=== PATIENT | female | born 1970 | race Hispanic/Latino ===

== ENCOUNTER 2018-01-04 14:16 | Outpatient (CLI) | payer OTHER | END 2018-01-04 14:17 | disposition home or self-care (01) | LOC: LABHHL 14:16 | PROVIDERS: ATTEND Surgery | DX: N63.20 Unspecified lump in the left breast, unspecified quadrant (principal) | CPT/HCPCS: 88305; 88342; 88361 ==

== ENCOUNTER 2018-01-23 12:04 | Day surgery (SDC) | payer BC ==
[2018-01-23] MEDS ORDERED: ANCEF/STERILE WATER 2 GM/20 ML IV NR (13:42)
[2018-01-23] MEDS ORDERED: LACTATED RINGERS 1,000 ML IV SCH (14:00)
[2018-01-23] MEDS ORDERED: ROBINUL IV NR (14:00)
[2018-01-23] MEDS ORDERED: PEPCID IV SCH (14:00)
[2018-01-23] MEDS ORDERED: VERSED IV ONE (14:01)
--- NOTE | 2018-01-23 16:57 | Anesthesia Consultation ---
Anesthesia Consult and Med Hx Date of service: 01/23/18 - Airway Anesthetic Teeth Evaluation: Good ROM Head & Neck: Adequate Mental/Hyoid Distance: Adequate Mallampati Class: Class I Intubation Access Assessment: Good - Pulmonary Exam CTA: Yes - Cardiac Exam Cardiac Exam: No Murmur - Pre-Operative Health Status ASA Pre-Surgery Classification: ASA2 Proposed Anesthetic Plan: General - Pulmonary Hx Asthma: Yes (EXERCISE INDUCED) - Central Nervous System Hx Psychiatric Problems: No - Other Systems Hx Alcohol Use: Yes (OCCA) Hx Substance Use: No Hx Cancer: Yes
--- NOTE | 2018-01-23 16:57 | Anesthesia Day of Surgery ---
Anesthesia Day of Surgery - Day of Surgery Patient Examined: Yes Patient H&P Reviewed: Yes Patient is NPO: Yes
[2018-01-23] MEDS ORDERED: QUELICIN ONE (17:53)
[2018-01-23] MEDS ORDERED: DIPRIVAN 10 MG/ML IV ONE (17:53)
[2018-01-23] MEDS ORDERED: XYLOCAINE MPF 2% ONE (17:53)
[2018-01-23] MEDS ORDERED: HEPARIN 10,000 UNITS/10 ML ONE (17:56)
[2018-01-23] MEDS ORDERED: MARCAINE 0.5% 30 ML INFILTRATI ONE (17:56)
[2018-01-23] MEDS ORDERED: XYLOCAINE 1% 20 mL ONE (17:56)
[2018-01-23] MEDS ORDERED: NACL 0.9% 100 ML ONE (17:57)
[2018-01-23] MEDS ORDERED: SUBLIMAZE ONE (18:05)
[2018-01-23] MEDS ORDERED: MARCAINE 0.5% INFILTRATI ONE (18:38)
[2018-01-23] MEDS ORDERED: XYLOCAINE 1% 20 mL INFILTRATI ONE (18:38)
[2018-01-23] MEDS ORDERED: HEPARIN IV ONE (18:38)
[2018-01-23] MEDS ORDERED: ZOFRAN ONE (19:21)
--- NOTE | 2018-01-23 19:22 | Short Stay Summary ---
Short Stay Documentation Date of service: 01/23/18 - History H&P: obtained from office - Allergies and Medications Current Medications: Allergies Sulfa (Sulfonamide Antibiotics) Allergy (Verified 01/22/18 14:26) Hives Home Medications Medication Instructions Recorded Confirmed Last Taken Type Cetirizine HCl [ZyrTEC] 10 mg PO DAILY 01/22/18 01/22/18 01/22/18 History Doxylamine Succinate [Unisom] 25 mg PO QHS 01/22/18 01/22/18 01/22/18 History Fluticasone [Flonase] 1 spray NS QDAY 01/22/18 01/22/18 01/22/18 History Melatonin 5 mg PO QHS 01/22/18 01/22/18 01/22/18 History Montelukast [Singulair] 10 mg PO QPM 01/22/18 01/22/18 01/22/18 History Multivit with Calcium,Iron,Min 1 tab PO DAILY 01/22/18 01/22/18 01/22/18 History [Multiple Vitamins For Women] Pseudoephedrine ER [Sudafed 12 Hr] 120 mg PO QDAY 01/22/18 01/22/18 01/22/18 History oxyCODONE /ACETAMINOPHEN [Percocet 5 - 325 mg PO Q4-6H 01/23/18 01/23/18 23:30 History 5/325 mg] Active Medications Famotidine (Pepcid) 20 mg IV PREOP CELENA Stop: 01/23/18 23:59 Last Admin: 01/23/18 14:30 Dose: 20 mg Glycopyrrolate (Robinul) 0.1 mg IV PREOP NR Stop: 01/23/18 23:59 Last Admin: 01/23/18 14:25 Dose: 0.1 mg Lactated Ringer's (Lactated Ringers) 1,000 mls @ 75 mls/hr IV DIRECT CELENA Last Admin: 01/23/18 14:21 Dose: 75 mls/hr - Physical exam General appearance: no acute distress Integumentary: no rash, no growths, no abnormal pigmentation HEENT: EOMI Lungs: Clear to auscultation Heart: Regular rate Neurological: Normal speech - Brief post op/procedure progress note Date of procedure: 01/23/18 (Dictation#[id number]) Pre-op diagnosis: left breast cancer Post-op diagnosis: same Procedure: Ultrasound guided port placement Anesthesia: GETA Findings: normal anatomy Surgeon: VIOLA FARIAS Estimated blood loss: minimal (20cc) Pathology: none Condition: stable - Disposition Condition at discharge: Stable Disposition: DC-01 TO HOME OR SELFCARE - Discharge Diagnoses (1) Breast cancer Status: Acute Qualifiers: Laterality: left Short Stay Discharge Plan Diet: regular Wound: open to air, keep clean and dry, other (may shower after 48hours. Pat dry wounds) Special Instructions: no heavy lifting (or strenuous activity for 6 weeks) Follow up with: BREANA ESPARZA [Other] - 7 Days
--- NOTE | 2018-01-23 20:26 | Operative Report ---
PREOPERATIVE DIAGNOSIS: Left breast cancer. POSTOPERATIVE DIAGNOSIS: Left breast cancer. PROCEDURES: 1. Insertion of tunneled centrally inserted central venous access device with subcutaneous port. 2. Ultrasound guidance for vascular access. ATTENDING PHYSICIAN: Juan Francisco Jones MD ANESTHESIA: General. ESTIMATED BLOOD LOSS: Minimal. FLUIDS: 1700 mL. FINDINGS: Normal vascular anatomy. IMPLANT: Infusaport. COMPLICATIONS: None. DISPOSITION: Stable, transferred to Recovery Room. INDICATIONS: This is a 47-year-old female with a recent diagnosis of breast cancer. The patient is assessed to be in need for chemotherapy. Request made for Port-A-Cath placement. Procedure, risks, benefits, and alternatives were discussed with the patient and . Risks included, but were not limited to infection, bleeding, pain, injury to surrounding structures, possible hemo or pneumothorax, possible port malfunction, and need for replacement, etc. All questions were answered. Consent was obtained. OPERATIVE NOTE: The patient was brought to the operating room and placed on the table in supine position. After adequate general anesthesia was established, the patient was prepped and draped in the usual sterile fashion. Antibiotics have been administered. SCDs were in place. Prior to the prepping, I did an ultrasound examination, the subclavian vein and artery were easily identified. They were patent and easily compressible in normal location. Therefore, this was our first target when we were ready for access. The patient was placed in Trendelenburg position, head was slightly rotated to the left, shoulder roll was underneath the spine. A small incision was made in the lateral aspect of the upper chest. Under ultrasound guidance, I inserted the echogenic introducer needle. Initially, we were injecting local into the surrounding tissue. I could see that under ultrasound guidance. Then, ultrasound needle was used to access the vessel. I followed the path of the ultrasound needle down to the vessel. As I tried to enter the vessel, the vein kept pushing away, it kept indenting under the needle. I was concerned after a couple of attempts that it may suddenly release and I may end up going through the vein into the underlying pleural cavity causing a pneumothorax. Therefore, I elected to abort this access and go to the neck. Evaluation of the neck revealed a very large and patent internal jugular vein on the right. It was easily compressible. The entire course was without clot and patent. I made another small incision on the lateral aspect of the neck under ultrasound guidance. I watched as the echogenic needle was inserted. We saw her directly that the needle was going into the vein. We had good aspiration of venous blood. Guidewire passed easily. I checked with ultrasound guidance, the wire was clearly in the internal jugular vein. We then brought fluoroscopy and the wire went all the way into the superior vena cava through the heart into the inferior vena cava. There was no ectopy at this point. I then injected the planned pocket site along with the planned tract site for the catheter. The pocket incision was made sharply. Blunt and electrocautery dissection was used to create the pocket. I then packed that pocket with gauze and then tunneled the catheter up to the neck. As noted, the tract had been anesthetized with local anesthetic, I had used 1% lidocaine and 0.5% Marcaine combination. We were able to bring the catheter out through the neck incision. I then secured the catheter and passed the tunneler and dilator over the wire, it passed easily. The guidewire and the dilator were removed. Pressure was held over the opening in the sheath. Catheter was easily inserted. We checked with fluoroscopy. We pulled the catheter back to a good location and then left a little extra slack so that I would have room to adjust the catheter at the pocket site. The port was attached and secured with a locking device and placed in the pocket easily. We then used the flush to aspirate and flush the port and lined, it did so very easily. We then made final adjustments for the catheter, sheath was removed. Catheter appeared to be in good position. At this point, I then injected the locking solution. We aspirated easily and then injected locking solution. This was a total of 3000 units of heparin, we had no active bleeding from either incision sites. I used 3-0 Vicryl to close the dermal layer with interrupted stitches. Skin was closed with running 4-0 Monocryl subcuticular stitches. Skin was cleaned and dried. Dermabond was applied to all 3 sites. The patient tolerated procedure well. There were no complications. The patient was stable, transferred to Recovery. Chest x-ray was done in the room. I saw no evidence of pneumothorax. The catheter appeared to be in good position. I went out afterwards to speak with the , he appreciated our efforts. JOB# [id number] DEANNA/JOE
--- NOTE | 2018-01-23 20:33 | Fluoroscopy Report ---
FINAL REPORT PROCEDURE: Chest one view TECHNIQUE: Chest radiograph anteroposterior view. CPT 67626 HISTORY: BREAST CANCER/INSERTION OF INFUSAPORT COMPARISON: No prior studies are available for comparison. FINDINGS: Heart: Normal. Mediastinum/Vessels: Normal. Lungs/Pleural space: Normal. Bony thorax: No acute osseous abnormality. Life support devices: A right-sided chest port is noted with its catheter terminating at the level of proximal right atrium. IMPRESSION: Lungs and pleural spaces are clear Right chest port catheter is terminating at the level of proximal right atrium..
--- NOTE | 2018-01-23 20:55 | Post Anesthesia Evaluation ---
- Post Anesthesia Evaluation Patient Participated: Yes Airway Patent: Yes Stable Respiratory Function: Yes Nausea/Vomiting: No Temp > 96.8F: Yes Pain Manageable: Yes Adequeate Hydration: Yes Anesthesia Complications: No Block Receding Appropriately: Not Applicable Patient on Ventilator: No
[2018-01-23 21:11] VITALS: BP 124/73
== END 2018-01-23 20:50 | disposition home or self-care (01) ==
LOC: OR 12:04
PROVIDERS: ATTEND Surgery
DX: C50.212 Malignant neoplasm of upper-inner quadrant of left female breast (principal); J45.909 Unspecified asthma, uncomplicated; M19.90 Unspecified osteoarthritis, unspecified site; E66.9 Obesity, unspecified; Z88.2 Allergy status to sulfonamides; Z98.890 Other specified postprocedural states
CPT/HCPCS: 36561; 76937; 77001; 81025; C1788; J0690; J1644; J2250; J2405; J2704; J3010; J7120; J0330

== ENCOUNTER 2021-01-24 10:25 | Outpatient (CLI) | payer BC ==
--- NOTE | 2021-01-24 15:20 | Mammography Report ---
DIGITAL SCREENING MAMMOGRAM WITH TOMOSYNTHESIS WITH CAD, 01/24/2021 CLINICAL INFORMATION / INDICATION: Screening TECHNIQUE: Digital bilateral 2D and 3D mammography with tomosynthesis was obtained in the craniocaud al and mediolateral oblique projections. Computer-Aided Detection (CAD) analysis was used for interp retation of this study. COMPARISON: 01/15/2020 and priors FINDINGS: Breast Density: The breasts are heterogeneously dense, which may obscure small masses. No dominant mass, suspicious calcifications, or architectural distortion in either breast. Left surgical and radiation therapy changes are again seen. Mild further scar retraction is noted. IMPRESSION: No mammographic evidence of malignancy. Follow up recommendation: Routine yearly BI-RADS Category 2: Benign. A "normal" or negative report should not discourage follow up or biopsy of a clinically significant f inding. A written summary of these findings will be mailed to the patient. The patient will be entered into a mammography reporting system which will generate a reminder letter for the patient's next appointmen t at the appropriate interval. The [employer] recommends yearly mammograms starting at age 40 and continuing as l farideh as a woman is in good health. Breast MRI is recommended for women with an approximate 20-25% or greater lifetime risk of breast cancer, including women with a strong family history of breast or ova dunia cancer or who have been treated for Hodgkin's disease. Signer Name: Titus Villafana MD Signed: 01/24/2021 3:15 PM Workstation Name: [email or web address]
== END 2021-01-24 10:26 | disposition home or self-care (01) ==
LOC: SPVWC 10:25
PROVIDERS: ATTEND Surgery
DX: Z12.31 Encounter for screening mammogram for malignant neoplasm of breast (principal)
CPT/HCPCS: 77063; 77067